=== PATIENT | male | born 1975 | race Caucasian/White ===

== ENCOUNTER 2021-01-19 23:09 | Emergency (ER) | payer OTHER ==
[~2021-01-19] VITALS: Ht 193 cm; Wt 81.7 kg
[2021-01-20 01:10] VITALS: BP 140/90
== END 2021-01-20 01:10 | disposition home or self-care (01) ==
LOC: M.ERS 23:09
DX: L02.413 Cutaneous abscess of right upper limb (principal)

== ENCOUNTER 2021-05-14 21:33 | Emergency (ER) | payer OTHER ==
[~2021-05-14] VITALS: Ht 193 cm; Wt 86.2 kg
[2021-05-14 22:40] LABS: INFLUENZA A ANTIGEN Negative (Negative); INFLUENZA B ANTIGEN Negative (Negative)
[2021-05-14 23:35] VITALS: BP 155/89
== END 2021-05-14 23:35 | disposition home or self-care (01) ==
LOC: M.ERS 21:33
PROVIDERS: Personal Emergency Response Attendant
DX: B34.9 Viral infection, unspecified (principal); Z20.822 Contact with and (suspected) exposure to COVID-19